=== PATIENT | male | born 1975 | race Caucasian/White ===

== ENCOUNTER 2017-12-12 22:37 | Emergency (ER) | payer OTHER ==
[2017-12-12] MEDS ORDERED: NS 1,000 ML IV ONE ×2 (22:42)
--- NOTE | 2017-12-12 22:45 | EDPHY ---
H & P Source: Patient, EMS Time Seen by Provider: 12/12/17 22:43 HPI/ROS: HPI CHIEF COMPLAINT: Syncope, fall, facial injury, nasal laceration HISTORY OF PRESENT ILLNESS: This is a 42-year-old male, he is otherwise healthy , denies any significant medical history presents emergency room after he had a syncopal episode this evening. He just arrived to [facility] from suite in. He arrived at 6:30 p.m.. After her arriving he smoked marijuana he was seated eating pizza watching TV with his nephew he started feel nauseous he stood up tried to get to the bathroom took a few steps and then had a syncopal episode. He denied any palpitations or chest pain, denies shortness of breath his main complaint was nausea. He struck his face on the ground he sustained a nasal laceration brief period of LOC. No seizure activity no bowel bladder incontinence. No chest pain. Patient reports he did have wine on the flight. He is unsure how well hydrated he stayed. He has had a history of syncope in the past. Past Medical History: Denies significant medical history Past Surgical History: Denies significant surgical history Social History: Resides in [facility]. Visiting his nephew. Family History: Noncontributory ROS REVIEW OF SYSTEMS: 10 Systems were reviewed and negative with the exception of the elements mentioned in the history of present illness. Exam Constitutional nontoxic. No acute distress triage nursing summary reviewed, vital signs reviewed, awake/alert. Eyes normal conjunctivae and sclera, EOMI, PERRLA. HENT head/neck is atraumatic no midline cervical spine pain or step-offs, however face, midface stable, there is a 6 cm laceration that starts at the right corner of his nose transverses the right aspect of his soft tissue of his nose then goes on to his nasal bridge. Mild swelling noted, no crepitus. Orbits intact. moist mucus membranes, no epistaxis, neck supple/ no meningismus , no raccoon eyes. Respiratory clear to auscultation bilaterally, normal breath sounds, no respiratory distress, no wheezing. Cardiovascular rate normal, regular rhythm, no murmur, no edema, distal pulses normal. Gastrointestinal soft, non-tender, no rebound, no guarding, normal bowel sounds, no distension, no pulsatile mass. Genitourinary no CVA tenderness. Musculoskeletal no midline vertebral tenderness, full range of motion, no calf swelling, no tenderness of extremities, no meningismus, good pulses, neurovascularly intact. Skin pink, warm, & dry, no rash, skin atraumatic. Neurologic awake, alert and oriented x 3, AAOx3, moves all 4 extremities equally, motor intact, sensory intact, CN II-XII intact, normal cerebellar, normal vision, normal speech. Psychiatric normal mood/affect. Heme/Lymph/Immune no lymphadenopathy. Differential Diagnosis: Includes but is not limited to in a particular order vasovagal syncope, orthostatic syncope, dehydration, syncope due to marijuana, electrolyte disturbance, cardiac arrhythmia, nasal bone fracture, soft tissue injury, nasal tissue laceration Medical Decision Making: Plan for this patient IV establishment IV fluid bolus , check basic blood work, EKG, troponin, CT scan head. Re-evaluate. Re-evaluation: EKG interpretation by me on record in [employer] system. Impression time of EKG 2244, sinus rhythm rate of 77 right bundle-branch block present. Without any signs of acute ischemia. No signs of cardiac arrhythmia. CT scan head without contrast shows nasal bone fractures. No evidence of intracranial bleed or skull fracture. 1236AM: Patient re-evaluated this time he ambulated well throughout the emergency room. Stable gait. Denies any chest pain or shortness of breath. He is eager to be discharged home as he has had a very long day. He flew from [facility] [place] the [place] He states he is very tired. He denies any chest pain or shortness of breath. He ambulated well throughout the emergency without difficulty. Patient has been given a disc for his nasal bone fractures. I do recommend he ice his face. Additionally he had should have his sutures removed in 7-8 days. He states to be flying back to [place] in 7 days. He is more than welcome to come back here on day 6 see if we can remove his sutures. He otherwise states that he will follow up in [place] for this. His EKG is noted to be a right bundle-branch block. He is unsure if he has a right bundle-branch block we made a copy for him. 1251: I discussed this case with Dr. Almaguer, did recommend the patient follows up on outpatient basis with outpatient Cardiology. Did not feel that patient need to be admitted for this syncopal event. Clinically most likely has syncopal event due to dehydration, ingesting wine, prolonged flight, smoking marijuana this evening, and getting up quickly from the couch. Patient has ambulated well throughout the ER denies chest pain or shortness of breath. Feels much better. Return precautions discussed the patient understands return if she develops any worsening symptoms includes shortness of breath, syncope, chest pain, passing out again. I have discussed at length the patient. Additionally understands follow-up with his primary care doctor back in [place] about this syncopal episode. Should see a qc analyst went back in [facility]. Additionally ENT would back in [facility]. Patient has a repeat troponin 0.01. Unchanged from his previous troponin. Patient's repeat EKG shows time of EKG 1:32 a.m., sinus rhythm rate of 84 right bundle-branch block present without any acute ischemia. 0154: Patient ambulated well throughout the emergency without difficulty. Feels well would like to go home. (Taras Reddy) Constitutional: Initial Vital Signs Temperature (C) 36.5 C 12/12/17 22:43 Heart Rate 71 12/12/17 22:43 Respiratory Rate 18 12/12/17 22:43 Blood Pressure 148/78 H 12/12/17 22:43 O2 Sat (%) 98 12/12/17 22:43 O2 Delivery Mode Room Air Allergies/Adverse Reactions: No Known Allergies Allergy (Unverified 12/12/17 22:42) Home Medications: Medication Instructions Recorded NK [No Known Home Meds] 12/12/17 Medical Decision Making - Diagnostics Imaging Results: Imaging Impressions Chest X-Ray 12/12/17 22:42 Impression: Clear lungs. No acute process. Head CT 12/12/17 22:42 Impression: 1. Acute displaced and depressed nasal fractures. 2. No acute skull fracture. 3. No acute intracranial hemorrhage or edema. Findings discussed with Emergency Department physician, Taras Reddy MD at 12/12/2017 23:04. Procedures: Procedure: Laceration repair. Verbal consent was obtained from the patient. The complex, 4.5 cm, deep laceration on the right side of the nose was anesthetized in the usual fashion 0.5% bupivacaine without epinephrine. The wound was irrigated, draped and explored to its base with a gloved finger. There were no deep structures involved. No tendon injury was identified. The wound was repaired with 2 layer closure; 5 0 Vicryl running buried mattress suture and #13, 6 0 Prolene simple interrupted. Bacitracin clean sterile dressing applied. The procedure was performed by myself. (Sheeba Hare) - Data Points Laboratory Results: Laboratory Results 12/12/17 22:40 12/12/17 22:40 12/13/17 12/12/17 12/12/17 01:36 22:48 22:40 WBC RBC Hgb Hct MCV MCH MCHC RDW Plt Count MPV Neut % (Auto) Lymph % (Auto) Forest % (Auto) Eos % (Auto) Baso % (Auto) Nucleat RBC Rel Count Absolute Neuts (auto) Absolute Lymphs (auto) Absolute Monos (auto) Absolute Eos (auto) Absolute Basos (auto) Absolute Nucleated RBC Immature Gran % Immature Gran # Sodium 140 mEq/L mEq/L (135-145) Potassium 3.7 mEq/L mEq/L (3.3-5.0) Chloride 101 mEq/L mEq/L (97-110) Carbon Dioxide 25 mEq/l mEq/l (22-31) Anion Gap 14 mEq/L mEq/L (6-14) BUN 14 mg/dL mg/dL (7-23) Creatinine 1.0 mg/dL mg/dL (0.7-1.3) Estimated GFR > 60 Glucose 123 mg/dL H mg/dL (70-100) Calcium 9.8 mg/dL mg/dL (8.5-10.4) POC Troponin I 0.01 ng/mL ng/mL 0.01 ng/mL ng/mL (0.00-0.08) (0.00-0.08) 12/12/17 22:40 WBC 9.14 10^3/uL 10^3/uL (3.80-9.50) RBC 5.15 10^6/uL 10^6/uL (4.40-6.38) Hgb 15.5 g/dL g/dL (13.7-17.5) Hct 45.1 % % (40.0-51.0) MCV 87.6 fL fL (81.5-99.8) MCH 30.1 pg pg (27.9-34.1) MCHC 34.4 g/dL g/dL (32.4-36.7) RDW 13.7 % % (11.5-15.2) Plt Count 316 10^3/uL 10^3/uL (150-400) MPV 9.7 fL fL (8.7-11.7) Neut % (Auto) 49.9 % % (39.3-74.2) Lymph % (Auto) 39.9 % % (15.0-45.0) Forest % (Auto) 7.7 % % (4.5-13.0) Eos % (Auto) 1.0 % % (0.6-7.6) Baso % (Auto) 0.5 % % (0.3-1.7) Nucleat RBC Rel Count 0.0 % % (0.0-0.2) Absolute Neuts (auto) 4.56 10^3/uL 10^3/uL (1.70-6.50) Absolute Lymphs (auto) 3.65 10^3/uL H 10^3/uL (1.00-3.00) Absolute Monos (auto) 0.70 10^3/uL 10^3/uL (0.30-0.80) Absolute Eos (auto) 0.09 10^3/uL 10^3/uL (0.03-0.40) Absolute Basos (auto) 0.05 10^3/uL 10^3/uL (0.02-0.10) Absolute Nucleated RBC 0.00 10^3/uL 10^3/uL (0-0.01) Immature Gran % 1.0 % % (0.0-1.1) Immature Gran # 0.09 10^3/uL 10^3/uL (0.00-0.10) Sodium Potassium Chloride Carbon Dioxide Anion Gap BUN Creatinine Estimated GFR Glucose Calcium POC Troponin I Medications Given: Discontinued Medications Diphtheria/Tetanus/Acell Pertussis (Boostrix) 0.5 ml IM .ONCE ONE Stop: 12/12/17 23:13 Last Admin: 12/12/17 23:50 Dose: 0.5 ml Sodium Chloride (Ns) 1,000 mls @ 0 mls/hr IV EDNOW ONE; Wide Open PRN Reason: Protocol Stop: 12/12/17 22:43 Last Admin: 12/12/17 23:02 Dose: 1,000 mls Sodium Chloride (Ns) 1,000 mls @ 0 mls/hr IV ONCE ONE PRN Reason: Wide Open Stop: 12/12/17 22:43 Last Admin: 12/12/17 23:47 Dose: 1,000 mls Point of Care Test Results: Chemistry 12/13/17 12/12/17 01:36 22:48 POC Troponin I 0.01 ng/mL ng/mL 0.01 ng/mL ng/mL (0.00-0.08) (0.00-0.08) Departure - Departure Disposition: Home, Routine, Self-Care Clinical Impression: Facial laceration, Nasal bone fracture, Syncope Condition: Good Instructions: Care For Your Stitches (ED), Nasal Fracture (ED), Laceration (ED) Additional Instructions: 1. Sutures need to be removed in 7 days. 2. Please follow up with Ear Nose and Throat doctor about her nasal bone fractures. 3. A disc of your images have been provided for you. So that you can have them to take back to [place]. 4. Make sure to stay well-hydrated drink lots of fluids. 5. Return immediately emergency room if you have another syncopal or passing out episode. 6. We have given a copy of her EKG to you. Please follow up with your doctor in [place]. Referrals: Patient,NotPresent [Unknown] - As per Instructions
[2017-12-12 22:55] LABS: PLATELET COUNT 316 10^3/uL (150-400)
[2017-12-12] MEDS ORDERED: TDAP ADULT 0.5 ML INJ (BOOSTRIX) IM ONE (23:12)
[2017-12-13 02:29] VITALS: BP 145/70
--- NOTE | 2017-12-13 23:58 | CPEKG ---
Test Reason : OPEN Blood Pressure : / mmHG Vent. Rate : 084 BPM Atrial Rate : 084 BPM P-R Int : 157 ms QRS Dur : 121 ms QT Int : 367 ms P-R-T Axes : 079 -18 064 degrees QTc Int : 434 ms Sinus rhythm Probable left atrial enlargement Right bundle branch block Confirmed by Taras Reddy ([id number]) on 12/13/2017 11:57:53 PM Also confirmed by Taras Reddy ([id number]) on 12/13/2017 11:58:05 PM Referred By: Confirmed By:Taras Reddy
--- NOTE | 2017-12-13 23:58 | CPEKG ---
Test Reason : OPEN Blood Pressure : / mmHG Vent. Rate : 077 BPM Atrial Rate : 079 BPM P-R Int : 167 ms QRS Dur : 127 ms QT Int : 405 ms P-R-T Axes : 076 002 038 degrees QTc Int : 459 ms Sinus rhythm Probable left atrial enlargement Right bundle branch block Confirmed by Taras Reddy ([id number]) on 12/13/2017 11:57:52 PM Also confirmed by Taras Reddy ([id number]) on 12/13/2017 11:58:04 PM Referred By: Confirmed By:Taras Reddy
== END 2017-12-13 02:02 | disposition home or self-care (01) ==
PROC: 0HQ1XZZ Repair Face Skin, External Approach (ICD-10-PCS; principal; 2017-12-13)
DX: R55 Syncope and collapse (principal); S01.21XA Laceration without foreign body of nose, initial encounter; S02.2XXA Fracture of nasal bones, initial encounter for closed fracture; E86.0 Dehydration; I45.10 Unspecified right bundle-branch block; W19.XXXA Unspecified fall, initial encounter; Y99.8 Other external cause status; Z23 Encounter for immunization
CPT/HCPCS: 84484-PO